=== PATIENT | female | born 1990 | race Caucasian/White ===

== ENCOUNTER 2017-05-09 06:00 | Inpatient (IN) ==
[2017-05-09] MEDS ORDERED: Naloxone 0.4 MG/ML INJ IVP PRN (06:30)
[2017-05-09] MEDS ORDERED: Ringers Solution, Lactated 1,000 ML IVC SCH (06:30)
[2017-05-09] MEDS ORDERED: Metoclopramide 10 MG/2 ML VIAL IVP PRN (06:30)
[2017-05-09] MEDS ORDERED: Famotidine 20 MG/2 ML VIAL IVP PRN (06:30)
[2017-05-09 07:05] LABS: Basophils # 0.1 K/mcL (0.0-0.2); Basophils % 0.6 %; Eosinophils # 0.2 K/mcL (0.0-0.6); Eosinophils % 1.6 %; Hematocrit 37.1 % (35.3-44.9); Hemoglobin 13.7 g/dL (11.5-15.4); Immature Granulocytes % 1.3 % (0-4); Lymphocytes # 1.8 K/mcL (0.6-4.6); Lymphocytes % 16.4 %; Mean Corpuscular HGB Conc 36.9 g/dL (31.6-35.5); Mean Corpuscular Hemoglobin 35.8 pg (28.0-33.3); Mean Corpuscular Volume 96.9 fL (83.0-100.0); Mean Platelet Volume 9.5 fL (9.4-12.4); Monocytes % 9.3 %; Neutrophils # 7.8 K/mcL (1.6-8.9); Platelet Count 213 K/mcL (140-400); Red Blood Count 3.83 M/mcL (3.82-4.97); Red Cell Distribution Width 11.7 % (11.5-14.5); Segmented Neutrophils % 70.8 %
[2017-05-09] MEDS ORDERED: miSOPROStol 100 MCG TABLET PO SCH (08:00)
--- NOTE | 2017-05-09 09:59 | Anesthesia Evaluation PreOp ---
Date of Encounter: 05/09/17 Time of Encounter: 09:30 - Past History Planned Operation: epidural Cardiac History: Denies any Significant Hx Pulmonary History: Denies Any Significant HX ROAD ENGINEER History: Denies Any Significant HX Other Medical History: Denies Any Significant HX Anesthesia History: No Prior Anesthetic Complications (right wrist surgery, no anes complications, no family history of anesthetic complications, risks and benefits of epidural explained, patient agreees to proceed.) : Yes Test: Positive Alcohol Use: none Drug use: none Medications and Allergies Tablet 05/09/17 [History] 3 Allergy/AdvReac Type Severity Reaction Status Date / Time No Known Allergies Allergy Verified 10/06/16 20:12 - Meds/Allergy Pre-op Review Medications Reviewed: Yes Allergies Reviewed: Yes Beta Blockers on Current Med List: No Anesthesia Results - Labs 05/09/17 06:40 Anesthesia Exam 3 Vital Signs Time 0930 BP 110/62 Pulse 95 Resp 16 O2 Sat Height: 60 inches Weight: 59.9 kg NPO (# of Hours): 5 am Pain Scale: 0 Pain Scale Used: Numeric (1 - 10) - HEENT Pupil (Motor): Pupils equal Mallampati: II Teeth: Normal Oral Opening: Less than or equal to 3 - ROAD ENGINEER LOC: Oriented ROAD ENGINEER Motor: Normal RUE, Normal LUE, Normal RLE, Normal LLE, Normal Face ROAD ENGINEER Sensory: Normal: RUE, LUE, RLE, LLE, Face - Cardiac Rhythm: Regular Murmur: None JVD: No Carotid Bruit: No - Pulmonary Breath Sounds: bilateral Clear Respiratory Effort: Symmetrical Anesthesia Assess/Plan ASA Score: 2 Modified Aisha Scale for Level of Consciousness: Cooperative, oriented, and tranquil Anesthetic Plan: Regional Autologous Blood: No Monitoring Plan: Standard Monitors Recovery Plan: Other
--- NOTE | 2017-05-09 11:43 | OB Labor Progress Note ---
Date of Encounter: 05/09/17 Time of Encounter: 11:41 Labor Progress Note - Subjective Subjective: Pt with some uterine irritability, no other c/o - Cervix Cervix: 2 80 -2 - Heart Tones Heart Tones: RNST - Del Dios Del Dios: Irritabilty on toco's - Interventions Interventions: Devine catheter placed in cervix and baloon inflated to 40cc - Plan Plan: Expect
[2017-05-09] MEDS ORDERED: Oxytocin 20 units/ LR 1000 mL 20 UNIT/1,000 ML BAG IVC SCH (11:45)
--- NOTE | 2017-05-09 11:46 | OB/GYN History & Physical ---
Date of Encounter: 05/09/17 Time of Encounter: 11:43 Assessment and Plan (1) 39 weeks gestation of Current visit: Yes Status: Acute Will proceed with induction of labor History of Present Illness Chief complaint: Here for induction HPI: Ms. Nicolas is a 26 year old female female presents at 39+ weeks EGA for induction of labor. Past Med Surg Social Fam HX - Past Medical History Source: patient Medical history: no medical history Psychiatric history: no psych history - Past Surgical History Surgical History: other - Social History Smoking Status: Never smoker Smokeless Tobacco Status: No Alcohol use: none Drug use: none - Family History Father Adopted: No Family Member Ethnicity: Non- Living Status: Still Living Hx Family Cardiac Disorders: Yes Hx Family Cancer: Yes (thyroid) Obstetrical History - Pregnancies : 1 Medications and Allergies Tablet 05/09/17 [History] 3 Allergy/AdvReac Type Severity Reaction Status Date / Time No Known Allergies Allergy Verified 10/06/16 20:12 Exam - Constitutional Constitutional: well developed - HEENT HEENT: EOMI, PERRL - Neck Neck exam: full ROM - Lungs Respiratory exam: CTAB - Cardiovascular Cardiovascular exam: RRR - Extremities Deep Tendon Reflex Grade: 2+ Normal - Cervix Dilation: 2 Effacement: 80 Station: -2 - Uterus Uterus exam: Present: enlarged Results Result Diagrams: 05/09/17 06:40 Abnormal lab results MCH 35.8 pg (28.0-33.3) H 05/09/17 06:40 MCHC 36.9 g/dL (31.6-35.5) H 05/09/17 06:40 All other labs normal. - VTE Reasons for not Prescribing Prophylaxis: Treatment not Indicated - Low risk for VTE
--- NOTE | 2017-05-09 17:07 | OB Labor Progress Note ---
Date of Encounter: 05/09/17 Time of Encounter: 17:06 Labor Progress Note - Subjective Subjective: UC's getting stronger - Cervix Cervix: 4/90/-1 - Heart Tones Heart Tones: RNST - Sadler Sadler: UC's q 2 min with pit at 6 mu/min. - Interventions Interventions: AROM clear - Plan Plan: Expect
[2017-05-09] MEDS ORDERED: Bupivacaine-MPF 0.25% 10 ML VIAL EP ONE (17:51)
[2017-05-09] MEDS ORDERED: *HR* FentaNYL (PF) 100 MCG/2 ML VIAL EP ONE (17:51)
[2017-05-09] MEDS ORDERED: Epidural Premix (fent/bupiv) 110 ML EP ONE (17:56)
[2017-05-09] MEDS ORDERED: Epidural Premix (fent/bupiv) 110 ML EP SCH (18:00)
--- NOTE | 2017-05-09 18:51 | Anesthesia Procedures ---
Date of Encounter: 05/09/17 Time of Encounter: 18:10 Procedures: Anesthesia - Epidural/Spinal Patient ID/Chart reviewed: Yes Patient examined: Yes OB Eval: Gestational age: 39 weeks 3 days OB Eval: : 1 OB Eval: Hx Para: 0 OB Eval: Dilated at (cm): 4 OB Eval: Contractions: Non-stressed pattern Consent Obtained: Yes Supplemental Oxygen: None/Room Air Site Prep: Aseptic Technique, Sterile prep and drape, Povidone-Iodine 1% Patient position: upright Local Anesthetic: Lidocaine 1% Amount of Local Anesthetic used: 3 Touhy Needle Gauge: 18 Touhy Needle Depth (cm): 5 Catheter Depth at Skin (cm): 11 Test Dose (1.5% Lido + Epi): Volume given (mls): 3 Test Dose Result: Negative Loading Dose: 0.25% Marcaine (mls): 5 Loading Dose: Fentanyl (mcg): 100 Loading Dose Administered: Thru Catheter Infusion Med: 0.125% Bupivacaine w/ 2 mcg/ml Fentanyl Infusion Rate (mls/hr): [address]: Tegaderm, Tape Interspace Used: L3-L4 Loss of Resistance (AILYN): Yes (air) Blood: No CSF: No Paresthesia: No Procedure: 3 Vital Signs Time 1810 start 1824 cath 1833 bolus 1844 finish pump started BP 134/75 121/58 103/57 116/58 Pulse 99 90 86 96 Resp 18 18 18 18 O2 Sat 97 97 96 97 heart tones 140's throughout, patient tolerated well.
--- NOTE | 2017-05-10 00:15 | OB/GYN Procedure Note ---
Delivery - Delivery Date: 05/09/17 Provider: Jordan Morales Intrapartum events: none Delivery induction: misoprostol Delivery monitor: internal uterine Anesthesia: epidural Estimated Blood Loss: 100 - (s) A Infant Delivery Date: 05/09/17 Infant Delivery Time: 23:43 Presentation: vertex Position: GLORIA Route of delivery: Gender: Female Viability: Viable Pounds: 6 Ounces: 2 at 1 minute: 7 at 5 mins: 9 Shoulder Dystocia: not encountered Specimens collected: cord blood Placenta: spontaneous Cord: 3 umbilical vessels - Repair Episiotomy: none Laceration Description: Perineal - 1st Degree - Complications Delivery complications: none - Disposition Mom disposition: stable in LDR [place] disposition: stable in LDR - Comments Comments: Pt s/p of liveborn female without incident. Spontaneous dellivery of normal placenta with 3 VC. 1st degree laceration repaired with 3-0 Vicryl under epidural anesthesia. No compllications, mother and infant recovered.
[2017-05-10] MEDS ORDERED: Measles/Mumps/Rubella Vacc 0.5 ML VIAL SQ PRN (01:58)
[2017-05-10] MEDS ORDERED: Acetaminophen 325 MG TABLET PO PRN (01:58)
[2017-05-10] MEDS ORDERED: Rho Immune Globulin 1,500 UNIT SYRINGE IM PRN (01:58)
[2017-05-10] MEDS ORDERED: Oxytocin 20 units/ LR 1000 mL 20 UNIT/1,000 ML BAG IVC SCH (01:58)
[2017-05-10] MEDS: Ibuprofen 600 MG TABLET PO PRN ×2 (07:54→19:50)
[2017-05-10] MEDS: Prenatal Vit/FA 1 EACH TABLET PO SCH (07:54)
--- NOTE | 2017-05-10 08:10 | OB/GYN Progress Note ---
Date of Encounter: 05/10/17 Time of Encounter: 08:08 - Assessment and Plan (1) Vaginal delivery Current Visit: Yes Status: Acute Continue routine care discharge home tomorrow (2) First degree perineal laceration during delivery Current Visit: Yes Status: Acute perineal care: ice packs prn Subjective - Subjective Principal diagnosis: day 1 Interval history: Patient sitting in bed eating breakfast. Patient denies any pain. due to late delivery time plan to discharge home tomorrow. Patient reports: appetite normal, voiding normally, pain well controlled, ambulating normally : doing well, bottle feeding Objective - Latest Vital Signs Latest vital signs: Vital Signs Temp Pulse Resp BP Pulse Ox 05/10/17 03:50 14 05/10/17 02:50 97.9 F 74 14 108/64 97 05/10/17 01:50 98.3 F 76 14 117/77 98 Intake and Output 05/09/17 05/10/17 05/10/17 23:59 07:59 15:59 Output Total 600 / 600 Balance -600 / -600 Output: Urine 500 / 500 Estimated Blood Loss 100 / 100 Other: Weight 58 kg Patient Weight 05/10/17 23:59 Weight 58 kg - Exam Lungs: bilateral: normal Chest: Normal S1, Normal S2 Extremities: Present: normal Abdomen: Present: normal appearance, soft Uterus: Present: normal, firm Uterus Position: 1 Finger Below Umbilicus, Midline
[2017-05-11 08:29] VITALS: BP 102/66
[2017-05-11] MEDS: Prenatal Vit/FA 1 EACH TABLET PO SCH (08:31)
--- NOTE | 2017-05-11 09:00 | Discharge Summary ---
Date of Encounter: 05/11/17 Time of Encounter: 08:58 - Discharge Diagnosis (1) Vaginal delivery Priority: Primary Status: Acute Comments: Pt meeting all milestones, feels well, pain managed on po pain, tolerates po diet, desires discharge - Discharge Medications Prescriptions: Ibuprofen [Motrin] 600 mg PO Q6HR PRN #60 tab PRN Reason: Cramping Docusate [Colace] 100 mg PO BID #60 Home Medications: Tablet 05/09/17 [History] Acetaminophen [Tylenol] 650 mg PO Q6HR PRN tab 05/11/17 [Rx] Docusate [Colace] 100 mg PO BID #60 05/11/17 [Rx] Ibuprofen [Motrin] 600 mg PO Q6HR PRN #60 tab 05/11/17 [Rx] Vit/FA 1 each PO DAILY tab 05/11/17 [Rx] Allergies/Adverse Reactions: 3 Allergy/AdvReac Type Severity Reaction Status Date / Time gluten AdvReac Vomiting Verified 05/10/17 02:37 Data Procedures and tests throughout hospitalization: Laboratory Tests 05/09/17 05/10/17 06:40 00:29 WBC 10.9 RBC 3.83 Hgb 13.7 Hct 37.1 MCV 96.9 MCH 35.8 H MCHC 36.9 H RDW 11.7 Plt Count 213 MPV 9.5 Immature Gran % 1.3 Seg Neutrophils % 70.8 Lymphocytes % 16.4 Monocytes % 9.3 Eosinophils % 1.6 Basophils % 0.6 Neutrophils # 7.8 Lymphocytes # 1.8 Monocytes # 1.0 Eosinophils # 0.2 Basophils # 0.1 Screen NEGATIVE Baby's Blood Type O RH POSITIVE Mother's Blood Type A RH NEGATIVE Rhogam Indicated YES Rhogam Req for Mother 1 Labs on day of discharge: Labs from last 24 hours 05/10/17 00:29 Screen NEGATIVE Baby's Blood Type O RH POSITIVE Mother's Blood Type A RH NEGATIVE Rhogam Indicated YES Rhogam Req for Mother 1 Date of admission: 05/09/17 06:13 Primary care physician: PCP NONE Consults: 05/10/17 01:58 Consult to Turbine Inspector [CONS] Routine Comment: Vaginal delivery, consult needed Discharging clinician: Heena Banks Anticipated date of discharge: 05/11/17 - Patient Status Disposition: Home, Self-Care Condition: Good Functional capacity at discharge: independent ambulation Overall status at discharge: patient is back to baseline - Discharge Instructions Follow Up With: NONE,PCP [Primary Care Provider] - Jordan Morales MD [Partnered Physician] - - Diet and Activity Activity: resume usual activities as tolerated Diet: regular diet Hospital Course Reason for admission: induction of labor, IUP at term Delivery: Episiotomy: none Laceration: 1st degree complications: none Discharge diagnosis: IUP at term delivered baby: female Hospital course: Delivery - Delivery Date: 05/09/17 Provider: Jordan Morales Intrapartum events: none Delivery induction: misoprostol Delivery monitor: internal uterine Anesthesia: epidural Estimated Blood Loss: 100 - (s) A Infant Delivery Date: 05/09/17 Infant Delivery Time: 23:43 Presentation: vertex Position: GLORIA Route of delivery: Gender: Female Viability: Viable Pounds: 6 Ounces: 2 at 1 minute: 7 at 5 mins: 9 Shoulder Dystocia: not encountered Specimens collected: cord blood Placenta: spontaneous Cord: 3 umbilical vessels - Repair Episiotomy: none Laceration Description: Perineal - 1st Degree - Complications Delivery complications: none - Disposition Mom disposition: stable in PP and appropriate for discharge - Comments Comments: Pt s/p of liveborn female infant without incident. Spontaneous dellivery of normal placenta with 3 VC. 1st degree laceration repaired with 3-0 Vicryl under epidural anesthesia. No compllications, mother and infant recovered. Time Attestation: Total time spent providing and/or coordinating discharge services: Time Spent: Less than 30 minutes Exam - Constitutional Vitals: Temp Pulse Resp BP Pulse Ox 98.2 F 76 16 102/66 98 05/11/17 07:30 05/11/17 07:30 05/11/17 07:30 05/11/17 07:30 05/10/17 19:30 General appearance IM: A&O X 3 - Respiratory Respiratory exam: Present: CTAB - Cardiovascular Cardiovascular exam IM: Present: RRR - GI/Abdominal GI/Abdominal exam IM: normal bowel sounds, soft - Uterine Tone: Firm Uterus Position: At Umbilicus - Extremities Exam Extremities exam IM: Present: normal capillary refill, normal inspection - Neurological Exam Neurological exam: normal gait, oriented X3 - Psychiatric Additional comments: reports good mood
== END 2017-05-11 13:00 | disposition home or self-care (01) | DRG 775 ==
LOC: 1NENULAB 06:13 → 1NENUOBS 05-10 01:56
PROVIDERS: ADMIT Obstetrics & Gynecology; ATTEND Obstetrics & Gynecology

== ENCOUNTER → 2019-06-26 19:40 | Observation (INO) ==
[2019-06-26 18:57] LABS: Amphetamine Screen,Urine Negative ng/mL (Cutoff=1000); Barbiturate Screen,Urine Negative ng/mL (Cutoff=200); Benzodiazepines Screen,Urine Negative ng/mL (Cutoff=200); Cannabinoid Screen,Urine Negative ng/mL (Cutoff = 50); Cocaine Screen,Urine Negative ng/mL (Cutoff= 300); Opiate Screen,Urine Negative ng/mL (Cutoff=300); Phencyclidine Screen,Urine Negative ng/mL (Cutoff=25)
[2019-06-26 18:57] LABS: Bilirubin,Urine Negative (Negative); Blood,Urine Large (Negative); Glucose,Urine (UA) Normal (Normal); Ketones,Urine Negative (Negative); Leukocyte Esterase,Urine Moderate (Negative); Nitrite,Urine Positive (Negative); PH,Urine 7.5 pH Units (5.0-8.0); Protein,Urine 30 mg/dL (Neg-Trace); Specific Gravity,Urine 1.007 (1.010-1.025); Urobilinogen,Urine Normal (Normal)
[2019-06-26 18:59] LABS: Clarity,Urine Hazy (Clear); Color,Urine Pink (Yellow)
[2019-06-26 19:01] LABS: RBC,Urine TNTC per hpf (0-3); Squamous Epithelial Cell,Urine Moderate per lpf (None-Few); WBC,Urine 30-50 per hpf (0-3)
[2019-06-26 19:02] LABS: Bacteria,Urine Few per hpf (None-Few); Hyaline Casts,Urine None Seen per lpf (None-Few); Renal Epithelial Cells,Urine Few per hpf (None-Few)
== END | disposition home or self-care (01) ==
LOC: 1NENULAB
PROVIDERS: ADMIT Advanced Practice Midwife; ATTEND Advanced Practice Midwife

== ENCOUNTER 2019-08-20 07:49 | Inpatient (IN) ==
[2019-08-20] MEDS ORDERED: Naloxone 0.4 MG/ML INJ IVP PRN (08:24)
[2019-08-20] MEDS ORDERED: Ondansetron 4 MG/2 ML VIAL IVP PRN (08:24)
[2019-08-20] MEDS ORDERED: Famotidine 20 MG/2 ML VIAL IVP PRN (08:24)
[2019-08-20] MEDS ORDERED: Metoclopramide 10 MG/2 ML VIAL IVP PRN (08:24)
[2019-08-20] MEDS ORDERED: *HR* Nalbuphine 10 MG/ML AMPUL IVP PRN (08:24)
[2019-08-20] MEDS ORDERED: Ringers Solution, Lactated 1,000 ML IVC SCH (08:30)
[2019-08-20] MEDS ORDERED: miSOPROStoL 25 MCG TABLET PO PRN (08:35)
[2019-08-20] MEDS ORDERED: Epidural Premix (fent/bupiv) 110 ML EP SCH (09:00)
[2019-08-20 09:19] LABS: Amphetamine Screen,Urine Negative ng/mL (Cutoff=1000); Barbiturate Screen,Urine Negative ng/mL (Cutoff=200); Benzodiazepines Screen,Urine Negative ng/mL (Cutoff=200); Cannabinoid Screen,Urine Negative ng/mL (Cutoff = 50); Cocaine Screen,Urine Negative ng/mL (Cutoff= 300); Opiate Screen,Urine Negative ng/mL (Cutoff=300); Phencyclidine Screen,Urine Negative ng/mL (Cutoff=25)
[2019-08-20 09:28] LABS: Basophils # 0.1 K/mcL (0.0-0.2); Basophils % 0.5 %; Eosinophils % 0.4 %; Hematocrit 36.5 % (35.3-44.9); Immature Granulocytes % 1.1 % (0-4); Lymphocytes # 1.8 K/mcL (0.6-4.6); Lymphocytes % 16.8 %; Mean Corpuscular HGB Conc 35.6 g/dL (31.6-35.5); Mean Corpuscular Hemoglobin 34.7 pg (28.0-33.3); Mean Corpuscular Volume 97.3 fL (83.0-100.0); Mean Platelet Volume 10.5 fL (9.4-12.4); Monocytes # 0.8 K/mcL (0.0-1.3); Monocytes % 8.1 %; Neutrophils # 7.6 K/mcL (1.6-8.9); Platelet Count 210 K/mcL (140-400); Red Blood Count 3.75 M/mcL (3.82-4.97); Red Cell Distribution Width 12.2 % (11.5-14.5); Segmented Neutrophils % 73.1 %; White Blood Count 10.4 K/mcL (4.3-11.1)
[2019-08-20] MEDS ORDERED: Oxytocin 20 units/ LR 1000 mL 20 UNIT/1,000 ML BAG IVC ONE (13:18)
[2019-08-20] MEDS ORDERED: Measles/Mumps/Rubella Vacc 0.5 ML VIAL SQ PRN (16:27)
[2019-08-20] MEDS ORDERED: Rho Immune Globulin 1,500 UNIT SYRINGE IM PRN (16:27)
[2019-08-20] MEDS ORDERED: Oxytocin 20 units/ LR 1000 mL 20 UNIT/1,000 ML BAG IVC SCH (16:27)
[2019-08-21] MEDS ORDERED: Ibuprofen 600 MG TABLET PO PRN (04:33)
[2019-08-21] MEDS: Acetaminophen 325 MG TABLET PO PRN ×2 (04:36→13:43)
[2019-08-21 08:10] VITALS: BP 101/63
[2019-08-21 08:43] LABS: Basophils % 0.3 %
[2019-08-21 08:45] LABS: Immature Granulocytes % 0.8 % (0-4)
[2019-08-21] MEDS ORDERED: Prenatal Vit/FA 1 EACH TABLET PO SCH (09:00)
[2019-08-21 09:13] LABS: Eosinophils # 0.1 K/mcL (0.0-0.6); Eosinophils % 0.8 %; Hematocrit 34.7 % (35.3-44.9); Hemoglobin 12.6 g/dL (11.5-15.4); Immature Platelets 5.1 % (1.1-6.1); Lymphocytes # 1.8 K/mcL (0.6-4.6); Lymphocytes % 13.8 %; Mean Corpuscular HGB Conc 36.3 g/dL (31.6-35.5); Mean Corpuscular Hemoglobin 34.4 pg (28.0-33.3); Mean Platelet Volume 10.4 fL (9.4-12.4); Monocytes # 0.8 K/mcL (0.0-1.3); Monocytes % 6.1 %; Neutrophils # 10.2 K/mcL (1.6-8.9); Platelet Count 209 K/mcL (140-400); Red Blood Count 3.66 M/mcL (3.82-4.97); Red Cell Distribution Width 12.3 % (11.5-14.5); Segmented Neutrophils % 78.2 %; White Blood Count 13.1 K/mcL (4.3-11.1)
[2019-08-21 09:14] LABS: Mean Corpuscular Volume 94.8 fL (83.0-100.0)
[2019-08-21] MEDS ORDERED: FLU Vac QV 19-20 (6Month+)/PF 0.5 ML SYRINGE IM ONE (12:35)
[2019-08-21] MEDS ORDERED: Benzocaine/Menthol 56 GM AEROSOL SPRAY TP PRN (12:52)
[2019-08-21] MEDS ORDERED: Ondansetron ODT 4 MG TAB.RAPDIS SL PRN (13:37)
== END 2019-08-21 15:06 | disposition home or self-care (01) | DRG 807 ==
LOC: 1NENULAB 07:49 → 1NENUOBS 16:27
PROVIDERS: ADMIT Obstetrics & Gynecology; ATTEND Obstetrics & Gynecology